=== PATIENT | male | born 1965 | race Two or more races ===

== ENCOUNTER 2025-02-08 09:04 | Inpatient (IN) | payer OTHER ==
[~2025-02-08] VITALS: Ht 172.7 cm; Wt 89.0 kg
--- NOTE | 2025-02-08 09:12 | ED.PDOC ---
HPI Comments 59-year-old male presents here with 2 weeks of intermittent chest discomfort. He states this is entire chest also radiates to bilateral shoulders. Positive nausea. He states his last about 2 minutes and goes away spontaneously. He states he can be doing anything and this occurs. No history of similar type of chest pain in the past. Denies any cough cold runny nose fever or chills. Patient is not a diabetic nonsmoker. Time Seen by MD: 09:12 Reviewed Notes: Nurses Notes, Medications, Allergies Allergies: Coded Allergies: NO KNOWN ALLERGIES (Unverified , 02/08/25) Information Source: Patient Mode of Arrival: Ambulatory Severity: Moderate Timing: Weeks Duration: Intermittent Prehospital treatment: None Location: Substernal Radiation: No Radiation Onset: At Rest Cardiac Risk Factors: None PE Risk Factors: None History of: None Modifying Factors: Nothing Associated Signs and Symptoms: None Past Medical History PAST MEDICAL HISTORY: Denies Surgical History: Denies all surgeries Family History Family History: Unknown Social History Smoker: Non-Smoker Alcohol: Denies ETOH Use Drugs: Denies Drug Use Lives In: Home Constitutional: denies: chills, diaphoresis, fatigue, fever, malaise, sweats, weakness, others EENTM: denies: blurred vision, double vision, ear bleeding, ear discharge, ear drainage, ear pain, ear ringing, eye pain, eye redness, hearing loss, mouth pain, mouth swelling, nasal discharge, nose bleeding, nose congestion, nose pain, photophobia, tearing, throat pain, throat swelling, voice changes, others Respiratory: denies: cough, hemoptysis, orthopnea, SOB at rest, shortness of breath, SOB with excertion, stridor, wheezing, others Cardiovascular: reports: chest pain; denies: dizzy spells, diaphoresis, Dyspnea on exertion, edema, irregular heart beat, left arm pain, lightheadedness, palpitations, PND, syncope, others Gastrointestinal: denies: abdomen distended, abdominal pain, blood streaked bowels, constipated, diarrhea, dysphagia, difficulty swallowing, hematemesis, melena, nausea, poor appetite, poor fluid intake, rectal bleeding, rectal pain, vomiting, others Genitourinary: denies: burning, dysuria, flank pain, frequency, hematuria, incontinence, penile discharge, penile sore, pain, testicle pain, testicle swelling, urgency, others Neurological: denies: dizziness, fainting, headache, left sided numbness, left sided weakness, numbness, paresthesia, pre-existing deficit, right sided numbne ss, right sided weakness, seizure, speech problems, tingling, tremors, weakness, others Musculoskeletal: denies: back pain, gout, joint pain, joint swelling, muscle pain, muscle stiffness, neck pain, others Integumetry: denies: bruises, change in color, change in hair/nails, dryness, laceration, lesions, lumps, rash, wounds, others Allergic/Immunocompromised: denies: Difficulty Healing, Frequent Infections, Hives, Itching, others Hematologic/Lymphatic: denies: anemia, blood clots, easy bleeding, easy bruising, swollen glands, others Endocrine: denies: excessive hunger, excessive sweating, excessive thirst, excessive urination, flushing, intolerance to cold, intolerance to heat, unexplained weight gain, unexplained weight loss, others Psychiatric: denies: anxiety, bipolar disorder, depression, hopeless, panic disorder, schizophrenia, sleepless, suicidal, others All Other Systems: Reviewed and Negative Physical Exam General Appearance: No Apparent Distress, Normal HEENT: Normal ENT Inspection, Pharynx Normal Neck: Full Range of Motion, Non-Tender, Normal, Normal Inspection Respiratory: Chest Non-Tender, Lungs Clear, No Accessory Muscle Use, No Respiratory Distress, Normal Breath Sounds Cardiovascular: No Edema, No Murmur, No Gallop, Normal Peripheral Pulses, Regular Rate/Rhythm Breast Exam: Deferred Gastrointestinal: No Organomegaly, Non Tender, No Pulsatile Mass, Normal Bowel Sounds, Soft Genitalia: Deferred Pelvic: Deferred Rectal: Deferred Extremities: No calf tenderness, Normal capillary refill, Normal inspection, Normal range of motion, Non-tender, No pedal edema Musculoskeletal : Apperance: Normal Neurologic: Alert, motorboat operator II-XII nml as Tested, No Motor Deficits, Normal Affect, Normal Mood, No Sensory Deficits Cerebellar Function: Normal Reflexes: Normal Skin: Dry, Normal Color, Warm Lymphatic: No Adenopathy EKG EKG #1: Comments Sinus rhythm rate of 66, prolonged QTC of 513. Inverted T-waves in 1 aVL V4, V5 with T-wave flattening in V6. EKG #2: Comments 10:22 a.m.. Normal sinus rhythm 57, inverted T-waves in 1 to aVL V4 V5 Was a procedure done? Was a procedure done?: No CP Differential Dx Differential Diagnosis: Other Differential Diagnosis: HTN Essential, HTN Accelerated Differential Diagnosis: Angina, Aortic dissection, Chest Wall Pain, Costochondritis, Esophageal reflux/spasm, Myocardial Infarction, Pericarditis, Pneumonia, Pneumothorax, Pulmonary Embolus X-Ray, Labs, Meds, VS Vital Signs Date Time Temp Pulse Resp B/P (MAP) Pulse Ox O2 Delivery O2 Flow Rate FiO2 02/08/25 10:22 57 02/08/25 10:00 98.2 60 16 212/113 (146) 97 98.2 02/08/25 10:00 60 02/08/25 09:09 66 02/08/25 09:04 98.7 64 16 189/88 (121) 96 98.7 Lab Test 02/08/25 12:35 02/08/25 10:20 02/08/25 09:21 Range/Units Troponin I High Sensitivity 69 *H 74 *H 75 *H </=54 ng/L White Blood Count 5.6 4.4-10.8 10^3/uL Red Blood Count 5.16 4.5-5.90 10^6/uL Hemoglobin 15.6 13.5-17.5 g/dL Hematocrit 45.8 41.0-53.0 % Mean Corpuscular Volume 88.8 80.0-100.0 fL Mean Corpuscular Hemoglobin 30.2 28.0-32.0 pg Mean Corpuscular Hemoglobin Concent 34.0 32.0-36.0 g/dL Red Cell Distribution Width 14.7 H 11.8-14.3 % Platelet Count 297 140-450 10^3/uL Mean Platelet Volume 7.6 6.9-10.8 fL Neutrophils (%) (Auto) 47.6 37.0-80.0 % Lymphocytes (%) (Auto) 42.5 10.0-50.0 % Monocytes (%) (Auto) 8.2 0.0-12.0 % Eosinophils (%) (Auto) 1.3 0.0-7.0 % Basophils (%) (Auto) 0.4 0.0-2.0 % Neutrophils # (Auto) 2.7 1.6-8.6 10 ^3/uL Lymphocytes # (Auto) 2.4 0.4-5.4 10 ^3/uL Monocytes # (Auto) 0.5 0-1.3 10 ^3/uL Eosinophils # (Auto) 0.1 0-0.8 10 ^3/uL Basophils # (Auto) 0 0-0.2 10 ^3/uL Nucleated Red Blood Cells 0.2 % Sodium Level 140 136-145 mmol/L Potassium Level 4.1 3.5-5.1 mmol/L Chloride Level 106 98-107 mmol/L Carbon Dioxide Level 26 20-31 mmol/L Anion Gap 8 5-15 Blood Urea Nitrogen 22 9-23 mg/dL Creatinine 1.91 H 0.700-1.30 mg/dL Glomerular Filtration Rate Calc 40 >90 mL/min BUN/Creatinine Ratio 11.5 10.0-20.0 Serum Glucose 102 74-106 mg/dL Hemoglobin A1c Pending Calcium Level 9.8 8.7-10.4 mg/dL Magnesium Level Pending Aspartate Amino Transferase (AST) Pending Alanine Aminotransferase (ALT) Pending B-Type Natriuretic Peptide Pending Triglycerides Level Pending Cholesterol Level Pending LDL Cholesterol Pending HDL Cholesterol Pending Thyroid Stimulating Hormone (TSH) Pending [place] [id number] Ph: [phone] DIAGNOSTIC IMAGING Diagnostic Imaging Report : [id number] Signed PATIENT: GHULAM MCKEON ACCT: [id number] UNIT: [id number] : 1965 LOC: ER ROOM / BED: / AGE / SEX: 59 / M ADM STATUS: REG ER SERVICE [id number] ORDERING PHYSICIAN: YOBANY GAMBLE MD PROCEDURE(s): CXR2 - CHEST TWO VIEWS ROUTINE REASON: Chest pain ORDER NUMBER(s): [id number], ACCESSION NUMBER(s): [id number] XY CHEST TWO VIEWS ROUTINE, HISTORY: Chest pain COMPARISON: None None TECHNICAL DATA: 2 view of the chest was obtained. FINDINGS: Lines and tubes: None Cardiomediastinal silhouette: normal Pulmonary vasculature: normal Lung expansion: normal Lung airspace: normal Lung interstitium: normal Pleura: normal Pneumothorax: no Bones: Unremarkable Other: no IMPRESSION: No acute intrathoracic abnormality. ATED BY: ANDRES YUSUF MD DICTATED DATE/TIME: 02/08/25 1033 SIGNED BY: ANDRES YUSUF MD SIGNED DATE/TIME: 02/08/25 1033 CC: 59-year-old male presents here with chest discomfort. EKG done multiple times demonstrates multiple repolarization abnormalities including inverted T- waves in multiple leads. Blood work demonstrates elevated troponins. At this time I am concerned about acute coronary syndrome. Patient has been given aspirin in the ER. Patient agreed to admission. Hospitalist has been contacted. CBC and BMP otherwise unremarkable. Time of 1ST Reevaluation: 10:42 Reevaluation 1ST: Unchanged Patient Education/Counseling: Diagnosis, Treatment Family Education/Counseling: No Family Present SEPSIS Sepsis Screen Physician Orders Electrocardigram (02/08/25 10:09) Electrocardigram (02/08/25 12:09) Chest Two Views Routine (02/08/25 09:35) B-Type Natriuretic Peptide (02/08/25 14:29) Blood Pressure (02/08/25 ) PTPTT (02/08/25 14:29) Echo 2d Mode Cardiac Dop (02/08/25 14:29) Lipid Panel (02/08/25 14:29) Hemoglobin A1c (02/08/25 14:29) Thyroid Stimulating Hormone (02/08/25 14:29) Alanine Aminotransferase (02/08/25 14:29) Aspartate Amino Transferase (02/08/25 14:29) Magnesium (02/08/25 14:29) Hydralazine Injection (Apresoline Inject (02/08/25 14:30) Communication Order (02/08/25 14:35) Urinalysis (02/08/25 14:36) Vital Signs Date Time Temp Pulse Resp B/P (MAP) Pulse Ox O2 Delivery O2 Flow Rate FiO2 02/08/25 10:22 57 02/08/25 10:00 98.2 60 16 212/113 (146) 97 98.2 02/08/25 10:00 60 02/08/25 09:09 66 02/08/25 09:04 98.7 64 16 189/88 (121) 96 98.7 Laboratory Tests Test 02/08/25 09:21 White Blood Count 5.6 10^3/uL (4.4-10.8) Departure 1 Departure Time of Disposition: 12:42 Impression: Primary Impression: NSTEMI (non-ST elevated myocardial infarction) Disposition: ADMITTED INPATIENT Condition: Serious Critical Care Note Critical Care Time?: Yes (35 min-critical care time only) Critical care comment: Concern for immediate deterioration given his EKG changes and elevated troponins. Time spent falling serial troponins and multiple re-evaluations of the patient Stability Stability form required: No Heart Score Heart Score: Heart Score Response (Comments) Value History Moderate Suspicious 1 EKG Repolarization Disturb 1 Age 45-64 1 Risk Factors 1 or 2 risk factors 1 Troponin 1-2 x's Normal limit 1 Total 5 I personally scribed for YOBANY GAMBLE MD ([email or web address]) on 02/08/25 at 09:12. Electronically submitted by Charlotte Ni ([email or web address]). I personally scribed for YOBANY GAMBLE MD ([email or web address]) on 02/08/25 at 10:24. Electronically submitted by Charlotte Ni ([email or web address]). I personally scribed for YOBANY GAMBLE MD ([email or web address]) on 02/08/25 at 10:42. Electronically submitted by Charlotte Ni ([email or web address]). I personally scribed for YOBANY GAMBLE MD ([email or web address]) on 02/08/25 at 10:58. Electronically submitted by Charlotte Ni ([email or web address]). YOBANY GAMBLE MD Feb 08, 2025 09:12
[2025-02-08 09:45] LABS: Hematocrit 45.8 % (41.0-53.0); Hemoglobin 15.6 g/dL (13.5-17.5); Mean Corpuscular Hemoglobin 30.2 pg (28.0-32.0); Mean Corpuscular Volume 88.8 fL (80.0-100.0); Nucleated Red Blood Cells % 0.2 %
--- NOTE | 2025-02-08 10:24 | ECG ---
[facility] Test Date: 2025-02-08 Test Time: 10:22:58 Pat Name: GHULAM MCKEON Department: ED Room: 0285T Gender: M Doctor Of Naturopathic Medicine: JESSICA : 1965 Requested By: YOBANY GAMBLE Order Number: [id number] Reading MD: Jose Lewis Measurements Intervals [place] Rate: 57 P: 63 W[place]: 171 QRS: -19 QRSD: 102 T: 221 QT: 465 QTc: 453 Interpretive Statements Sinus rhythm Borderline left axis deviation Abnormal T, consider ischemia, diffuse leads Electronically Signed On 02-09-2025 19:30:55 PDT by Jose Lewis Please click the below link to view image of tracing.
--- NOTE | 2025-02-08 10:35 | DVH ---
XY CHEST TWO VIEWS ROUTINE, HISTORY: Chest pain COMPARISON: None None TECHNICAL DATA: 2 view of the chest was obtained. FINDINGS: Lines and tubes: None Cardiomediastinal silhouette: normal Pulmonary vasculature: normal Lung expansion: normal Lung airspace: normal Lung interstitium: normal Pleura: normal Pneumothorax: no Bones: Unremarkable Other: no IMPRESSION: No acute intrathoracic abnormality.
[2025-02-08 10:53] LABS: Chloride 106 mmol/L (98-107); Potassium 4.1 mmol/L (3.5-5.1); Sodium 140 mmol/L (136-145)
[2025-02-08 10:54] LABS: Anion Gap 8 (5-15); Carbon Dioxide 26 mmol/L (20-31)
[2025-02-08 10:55] LABS: Calcium 9.8 mg/dL (8.7-10.4)
[2025-02-08 10:59] LABS: BUN/Creatinine Ratio 11.5 (10.0-20.0); Blood Urea Nitrogen 22 mg/dL (9-23); Glucose 102 mg/dL (74-106)
[2025-02-08 15:12] LABS: Alanine Aminotransferase 30.0 U/L (7-40); Cholesterol 150.0 mg/dL (< 200); Magnesium 2.0 mg/dL (1.6-2.6); Triglycerides 97.0 mg/dL (< 150)
[2025-02-08] MEDS ORDERED: HYDROcodone-ACET 5/325MG TAB PO PRN (15:15)
[2025-02-08] MEDS ORDERED: ACETAMINOPHEN 325 MG TAB PO PRN (15:15)
[2025-02-08] MEDS ORDERED: NITROGLYCERIN 0.4 MG SL TAB SL PRN (15:15)
[2025-02-08] MEDS ORDERED: MORPHINE SULFATE INJ 2 MG/ml SYRG IV PRN ×2 (15:15)
[2025-02-08] MEDS ORDERED: ONDANSETRON HCL 4 MG/2 ML VIAL IV PRN (15:15)
--- NOTE | 2025-02-08 15:20 | ECG ---
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
[2025-02-08 15:21] LABS: HDL Cholesterol 39.0 mg/dL (40-59)
[2025-02-08] MEDS: hydrALAZINE HCL 20 MG/ML VL IV ONE (15:25)
[2025-02-08 15:38] LABS: INR 0.97 (0.9-1.15); Partial Thromboplastin Time 27.6 SEC (24.5-34.5); Prothrombin Time 10.3 sec (9.3-11.8)
--- NOTE | 2025-02-08 15:38 | DVHHP2 ---
History of Present Illness Reason for Visit: Chest pain History of Present Illness 59-year-old male with no known past medical history presents to the emergency department with complaint of upper chest pain for the past 1.5 weeks. The pain is described as nonradiating, persistent, and associated with shortness of b reath. He denies palpitations, syncope, nausea, vomiting, diaphoresis, or lower extremity swelling. He reports no known prior history of CAD, [place], or hypertension. Denies familiar history of CAD or premature [place]. No history of tobacco use, alcohol consumption, or illicit drug use. In the emergency department, a 12 lead ECG shows sinus rhythm with abnormal T-wave changes. Serial troponins have been mildly elevated but trending down (75, 74, 69). Blood pressure has been persistently elevated: Initial BP 189/88 mmHg, repeat 212/113 mmhg, most recent 193/104 mmHg. Past Medical History Denies Past Surgical History Denies Family History Reviewed, non-contributory to the management of this case. Past Social History The patient lives at home, denies smoking, alcohol or illicit drugs abuse. Review of Systems Constitutional: Yes: Malaise; No: Fever, Chills, Sweats, Weakness, Other ENT: No: Ear pain, Ear discharge, Nose pain, Nose discharge, Nose congestion, Mouth pain, Mouth swelling, Throat pain, Throat swelling, Other Cardiovascular: Chest Pain; No: Palpitations, Orthopnea, Paroxysmal Noc. Dyspnea, Edema, Lt Headedness, Other Gastrointestinal: No: Nausea, Vomiting, Abdominal Pain, Diarrhea, Constipation, Melena, Hematochezia, Other Genitourinary: No Dysuria, No Frequency, No Incontinence, No Hematuria, No Retention, No Other Musculoskeletal: No: other, neck pain, shoulder pain, arm pain, back pain, hand pain, leg pain, foot pain Skin: No: Rash, Lesions, Jaundice, Bruising, Other Allergies: Coded Allergies: NO KNOWN ALLERGIES (Unverified , 02/08/25) Medications Current Medications Medications Dose Ordered Sig/Taiwo Route Start Time Stop Time Status Last Admin Dose Admin Hydralazine HCl 10 mg Q6HP PRN IV 02/08/25 14:30 Exam Vital Signs Vital Signs Date Time Temp Pulse Resp B/P (MAP) Pulse Ox O2 Delivery O2 Flow Rate FiO2 02/08/25 10:22 57 02/08/25 10:00 98.2 16 212/113 (423) 97 98.2 General Appearance: Alert, Oriented X3, Cooperative, mild distress HEENT: Atraumatic, PERRLA, EOMI, Mucous membr. moist/pink Respiratory: Clear to auscultation, Normal air movement Cardiovascular: Regular rate, Normal S1, Normal S2 Abdominal: Normal bowel sounds, Soft, No tenderness Extremities: No clubbing, No cyanosis, No edema, Normal pulses Skin: No rashes, No breakdown, No significant lesion Neuro: Normal gait, Normal speech, Strength at 5/5 X4 ext, Normal tone Psych/Mental Status: Mental status NL Labs/Xrays Labs Test 02/08/25 15:07 02/08/25 12:35 02/08/25 09:21 Range/Units Troponin I High Sensitivity 69 *H </=54 ng/L White Blood Count 5.6 4.4-10.8 10^3/uL Red Blood Count 5.16 4.5-5.90 10^6/uL Hemoglobin 15.6 13.5-17.5 g/dL Hematocrit 45.8 41.0-53.0 % Mean Corpuscular Volume 88.8 80.0-100.0 fL Mean Corpuscular Hemoglobin 30.2 28.0-32.0 pg Mean Corpuscular Hemoglobin Concent 34.0 32.0-36.0 g/dL Red Cell Distribution Width 14.7 H 11.8-14.3 % Platelet Count 297 140-450 10^3/uL Mean Platelet Volume 7.6 6.9-10.8 fL Neutrophils (%) (Auto) 47.6 37.0-80.0 % Lymphocytes (%) (Auto) 42.5 10.0-50.0 % Monocytes (%) (Auto) 8.2 0.0-12.0 % Eosinophils (%) (Auto) 1.3 0.0-7.0 % Basophils (%) (Auto) 0.4 0.0-2.0 % Neutrophils # (Auto) 2.7 1.6-8.6 10 ^3/uL Lymphocytes # (Auto) 2.4 0.4-5.4 10 ^3/uL Monocytes # (Auto) 0.5 0-1.3 10 ^3/uL Eosinophils # (Auto) 0.1 0-0.8 10 ^3/uL Basophils # (Auto) 0 0-0.2 10 ^3/uL Nucleated Red Blood Cells 0.2 % Sodium Level 140 136-145 mmol/L Potassium Level 4.1 3.5-5.1 mmol/L Chloride Level 106 98-107 mmol/L Carbon Dioxide Level 26 20-31 mmol/L Anion Gap 8 5-15 Blood Urea Nitrogen 22 9-23 mg/dL Creatinine 1.91 H 0.700-1.30 mg/dL Glomerular Filtration Rate Calc 40 >90 mL/min BUN/Creatinine Ratio 11.5 10.0-20.0 Serum Glucose 102 74-106 mg/dL Hemoglobin A1c 5.3 <5.7 % A1C Calcium Level 9.8 8.7-10.4 mg/dL Thyroid Stimulating Hormone (TSH) 0.52 L 0.55-4.78 uIU/mL PROCEDURE(s): CXR2 - CHEST TWO VIEWS ROUTINE REASON: Chest pain ORDER NUMBER(s): [id number], ACCESSION NUMBER(s): [id number] XY CHEST TWO VIEWS ROUTINE, HISTORY: Chest pain COMPARISON: None None TECHNICAL DATA: 2 view of the chest was obtained. FINDINGS: Lines and tubes: None Cardiomediastinal silhouette: normal Pulmonary vasculature: normal Lung expansion: normal Lung airspace: normal Lung interstitium: normal Pleura: normal Pneumothorax: no Bones: Unremarkable Other: no IMPRESSION: No acute intrathoracic abnormality. SEPSIS Sepsis Screen Date sepsis recognized/suspect: Feb 08, 2025 Time Sepsis recognized/suspect: 09:02 Recent Procedure: No On Antibiotic Therapy: No Respiratory Rate >20: No Heart Rate >90: No Temp<36 C (96.8 F) or >38.3 C: No SBP <90 or MAP <65 mmHG: No New Acute Mental Status Change: No Is the patient on CPAP, BIPAP,: No Physician Orders Electrocardigram (02/08/25 10:09) Electrocardigram (02/08/25 12:09) Chest Two Views Routine (02/08/25 09:35) B-Type Natriuretic Peptide (02/08/25 14:29) Blood Pressure (02/08/25 ) PTPTT (02/08/25 14:29) Echo 2d Mode Cardiac Dop (02/08/25 14:29) Lipid Panel (02/08/25 14:29) Alanine Aminotransferase (02/08/25 14:29) Aspartate Amino Transferase (02/08/25 14:29) Magnesium (02/08/25 14:29) Hydralazine Injection (Apresoline Inject (02/08/25 14:30) Communication Order (02/08/25 14:35) Urinalysis (02/08/25 14:36) Nifedipine Er (Procardia Xl (Time-Releas (02/08/25 15:15) Aspirin Tablet (02/09/25 10:00) Atorvastatin (Lipitor) (02/08/25 22:00) * Cardiology Consult (02/08/25 15:11) Admit (02/08/25 15:11) Code Status (02/08/25 15:11) Hydrocodone-Acet 5/325mg Tab ([place] 5/32 (02/08/25 15:15) Ondansetron Hcl (Zofran) (02/08/25 15:15) Enoxaparin Sodium (Lovenox) (02/09/25 10:00) Fall Risk Precautions In Place QSHIFT (02/08/25 15:11) Complete Blood Count (02/09/25 04:00) Comprehensive Metabolic Panel (02/09/25 04:00) Cardiac Diet-2gna,Lofat,Lochol (02/08/25 Dinner) Condition: Serious (02/08/25 15:11) Acetaminophen Tablet (Tylenol Tablet) (02/08/25 15:15) Morphine Sulfate Injection (02/08/25 15:15) Nitroglycerin Sublingual (Ntrostat Subli (02/08/25 15:15) Morphine Sulfate Injection (02/08/25 15:15) Stat Ekg For Chest Pain (02/08/25 15:11) Notify Md Of Changes From Base (02/08/25 15:11) [employer] Workflow Consultant For 24 Hours (02/08/25 15:11) Emergency Dysrhythmia Protocol (02/08/25 15:11) Rhythm Strips Once Every Shift (02/08/25 15:11) Oxygen By Nasal Cannula (02/08/25 15:11) Vital Signs Date Time Temp Pulse Resp B/P (MAP) Pulse Ox O2 Delivery O2 Flow Rate FiO2 02/08/25 10:22 57 02/08/25 10:00 98.2 60 16 212/113 (146) 97 98.2 02/08/25 10:00 60 02/08/25 09:09 66 02/08/25 09:04 98.7 64 16 189/88 (121) 96 98.7 Laboratory Tests Test 02/08/25 09:21 White Blood Count 5.6 10^3/uL (4.4-10.8) Assessment/Plan Assessment/Plan # hypertensive emergency * Admit to telemetry unit * Aggressive BP control * Started on nifedipine er 60mg qd, up titrate as tolerated. Hydralazine as needed * Check A!C, Lipid panel, TSH * Counseled on DASH diet # NSTEMI # Chest pain (heart score 5) * Chest pain protocol * Continue aspirin and statins * Repeat ECG * Echo * Cardiology consult # overweight * Lifestyle modification counseled DVT prophylaxis Medical plan discussed with patient and RN Plan discussed with: Patient My Orders Orders - WILLIAMS SANDERSON MANAGER TECHNICAL Procedure Category Date Status Time B-Type Natriuretic LAB 02/08/25 In Process Peptide 14:29 Blood Pressure ED NURSING 02/08/25 Transmitted PTPTT LAB 02/08/25 In Process 14:29 Echo 2d Mode Cardiac US 02/08/25 Logged DOP 14:29 Lipid Panel LAB 02/08/25 In Process 14:29 Alanine LAB 02/08/25 In Process Aminotransferase 14:29 Aspartate Amino LAB 02/08/25 In Process Transferase 14:29 Magnesium LAB 02/08/25 In Process 14:29 Hydralazine Injection PHA 02/08/25 In Process (Apresoline Inject 14:30 Communication Order ORDERS 02/08/25 Transmitted 14:35 Urinalysis LAB 02/08/25 Logged 14:36 Nifedipine Er PHA 02/08/25 Verified (Procardia Xl 15:15 Aspirin Tablet PHA 02/09/25 Verified 10:00 Atorvastatin (Lipitor) PHA 02/08/25 Verified 22:00 * Cardiology Consult CONS 02/08/25 Verified 15:11 Admit ADMIT 02/08/25 Verified 15:11 Code Status CODE 02/08/25 Verified 15:11 Hydrocodone-Acet PHA 02/08/25 Verified 5/325mg Tab ([place] 15:15 Ondansetron Hcl PHA 02/08/25 Verified (Zofran) 15:15 Enoxaparin Sodium PHA 02/09/25 Verified (Lovenox) 10:00 Fall Risk Precautions [facility] 02/08/[address] 15:11 Complete Blood Count LAB 02/09/25 Verified 04:00 Comprehensive LAB 02/09/25 Verified Metabolic Panel 04:00 Cardiac DIET 02/08/25 Verified Diet-2gna,Lofat,Lochol Dinner Condition: Serious [facility] 02/08/25 Verified 15:11 Acetaminophen Tablet PHA 02/08/25 Verified (Tylenol Tablet) 15:15 Morphine Sulfate [facility] 02/08/25 Verified Injection 15:15 Nitroglycerin [facility] 02/08/25 Verified Sublingual (Ntrostat 15:15 Morphine Sulfate PHA 02/08/25 Verified Injection 15:15 Stat Ekg For Chest [facility] 02/08/25 Verified Pain 15:11 Notify Md Of Changes [facility] 02/08/25 Verified From Base 15:11 [employer] Workflow Consultant For [facility] 02/08/25 Verified 24 Hours 15:11 Emergency Dysrhythmia [facility] 02/08/25 Verified Protocol 15:11 Rhythm Strips Once [facility] 02/08/25 Verified Every Shift 15:11 Oxygen By Nasal RT 02/08/25 Verified Cannula 15:11 Date of Service: Feb 08, 2025 Billing Provider: WILLIAMS SANDERSON Common Visit Codes: [id number] INP/OBS CARE (HIGH) Consultation Codes: [id number] CONSULT <60MIN WILLIAMS SANDERSON Feb 08, 2025 15:38
[2025-02-08 18:37] VITALS: BP 151/82; PULSE 69; RESP 16; TEMP 98.3; O2SAT 96
[2025-02-08 18:38] LABS: Urine Protein, UAD Negative (Negative)
[2025-02-08 19:59] VITALS: PULSE 77; RESP 12; O2SAT 95
[2025-02-08] MEDS: ATORVASTATIN 20 MG TAB PO SCH (21:28)
[2025-02-08 22:53] VITALS: BP 168/101; PULSE 65; RESP 16; TEMP 97.8; O2SAT 95
[2025-02-08 23:02] VITALS: PULSE 76; RESP 16
[2025-02-08] MEDS: hydrALAZINE HCL 20 MG/ML VL IV PRN (23:48)
[2025-02-09] VITALS (8 sets, daily range): BP systolic 130–151; BP diastolic 58–91; PULSE 68–81; RESP 16–22; TEMP 97.6–98.6; O2SAT 95–98
[2025-02-09 08:37] LABS: Hematocrit 48.9 % (41.0-53.0); Hemoglobin 16.5 g/dL (13.5-17.5); Mean Corpuscular Hemoglobin 30.0 pg (28.0-32.0); Mean Corpuscular Volume 88.9 fL (80.0-100.0); Nucleated Red Blood Cells % 0.2 %
[2025-02-09 08:55] LABS: Alanine Aminotransferase 29 U/L (7-40); Albumin 4.7 g/dL (3.2-4.8); Alkaline Phosphatase 68 U/L (46-116); Anion Gap 11 (5-15); BUN/Creatinine Ratio 11.9 (10.0-20.0); Blood Urea Nitrogen 19 mg/dL (9-23); Calcium 10.0 mg/dL (8.7-10.4); Carbon Dioxide 23 mmol/L (20-31); Chloride 105 mmol/L (98-107); Glucose 101 mg/dL (74-106); Potassium 4.1 mmol/L (3.5-5.1); Sodium 139 mmol/L (136-145); Total Protein 7.5 g/dL (5.7-8.2)
[2025-02-09 08:56] LABS: Bilirubin, Total 0.6 mg/dL (0.2-1.0)
[2025-02-09] MEDS: ENOXAPARIN SOD 40 MG/0.4 ML SYRINGE SC SCH (09:23)
[2025-02-09 11:07] LABS: Free T4 (Free Thyroxine) 0.94 ng/dL (0.89-1.76)
--- NOTE | 2025-02-09 14:10 | DVHPNRES ---
Progress Note Date Seen: Feb 09, 2025 Resident Creating Document: TRAVIS TESFAYE RESIDENT Medical Necessity Reason Pt with a Central, PICC or Fol: No Subjective Review of Systems 59-year-old male with no known past medical history presents to the emergency department with complaints of upper chest pain for the past 1.5 weeks. The patient reports The pain comes once or twice during the day but yesterday when he was lifting heavy boxes the pain was quite intense he rates it as 10/ 10 in intensity, lasts 1-1/2 minute, is associated with nausea, sweating, shortness of breath, dizziness but no vomiting. He denies palpitations, syncope, 1 no lower extremity swelling. He reports no known prior history of any disease and has never been to a PCP as he felt healthy always. PMH: Denies PSH: None Family history: Reviewed, noncontributory to the management of this case Past social history: Patient lives at home, denies ever smoking, taking alcohol, or using any illicit drugs. She: None Home medications: ROS: Patient reports feeling better today and that he has had no episodes of chest pain since he came yesterday to the emergency room. Objective vital signs Vital Sign Date Time Temp Pulse Resp B/P (MAP) Pulse Ox O2 Delivery O2 Flow Rate FiO2 02/09/25 09:23 145/91 02/09/25 09:00 98.5 81 18 96 98.5 02/09/25 08:00 Room Air* 0 21 Total Intake and Output 02/08/25 02/08/25 02/09/25 15:00 23:00 07:00 Intake Total 500 ml Balance 500 ml medications Current Medications Medications Dose Ordered Sig/Taiwo Route Start Time Stop Time Status Last Admin Dose Admin Hydralazine HCl 10 mg Q6HP PRN IV 02/08/25 14:30 02/08/25 23:48 10 MG Nifedipine 60 mg DAILY PO 02/08/25 15:15 02/09/25 09:23 60 MG Aspirin 81 mg DAILY PO 02/09/25 10:00 02/09/25 09:24 81 MG Atorvastatin Calcium 40 mg HS PO 02/08/25 22:00 Acetaminophen/ Hydrocodone Bitart 1 tab Q4HP PRN PO 02/08/25 15:15 Ondansetron HCl 4 mg Q4HP PRN IV 02/08/25 15:15 Enoxaparin Sodium 40 mg DAILY SC 02/09/25 10:00 02/09/25 09:23 40 MG Acetaminophen 650 mg Q6HP PRN PO 02/08/25 15:15 Morphine Sulfate 2 mg Q4HPRN PRN IV 02/08/25 15:15 Nitroglycerin 0.4 mg Q5MINP PRN SL 02/08/25 15:15 Morphine Sulfate 2 mg Q30M PRN IV 02/08/25 15:15 Examination Pt is lying on bed General Appearance: Alert, Oriented X3, Cooperative, Not in acute distress HEENT: Atraumatic, Mucous membranes moist/pink Respiratory: Clear to auscultation, Normal air movement, No added sounds Cardiovascular: Regular rate, Normal S1, Normal S2, No murmurs Abdominal: Active bowel sounds, Soft, no distention, no tenderness Extremities: No edema, Normal pulses, No tenderness/swelling Skin: No Significant rash, no Breakage in the skin Neuro: Normal speech, sensorimotor deficits none Psych/Mental Status: Mental status NL, Mood NL Nurse was there as economic development coordinator during examination laboratory and microbiology Laboratory Tests 02/09/25 07:29 Test 02/09/25 07:29 Range/Units Serum Glucose 101 74-106 mg/dL Labs and/or images reviewed: Labs reviewed by me, Image(s) reviewed by me Problem List/Assessment/Plan Problem List/Assessment/Plan # Chest pain rule out ACS # Hypertensive emergency with a questionable end-organ damage-resolving # PIETRO likely VMN from above # NSTEMI, type 2 likely due to hypertensive emergency # Newly diagnosed HTN -Chest pain protocol -continue aspirin and statins -ECG showed sinus rhythm and no significant ST changes -Aggressive BP control and monitoring -Started on nifedipine ER 60 mg q.i. d., hydralazine as needed -Counseled on diet, need of exercise -monitor lab for now and IVF if needed -Troponin levels high with down trending 70-74- 69 - hypertension under control now -Echo pending -CXR showed no acute changes #Overweight -Lifestyle modification counseled GI prophylaxis: Protonix DVT prophylaxis: Lovenox Diet: low-salt diet Goals of care discussed with the patient for more than 27 minutes: Full code status Case discussed with Dr. Kinsey patient and nurse. Plan discussed with: Patient, Other (rn) Date of Service: Feb 09, 2025 Billing Provider: BIANCA KINSEY MD Common Visit Codes: 61463-[id number] INP/OBS CARE(HIGH) TRAVIS TESFAYE RESIDENT Feb 09, 2025 14:10 TORSTEN BAUMAN RESIDENT Feb 09, 2025 14:47 BIANCA KINSEY MD Feb 09, 2025 20:49
--- NOTE | 2025-02-09 16:14 | ECG ---
[facility] Test Date: 2025-02-08 Test Time: 09:09:03 Pat Name: GHULAM MCKEON Department: ER Room: [facility]5T B Gender: M [place] Expert: BRADY : 1965 Requested By: YOBANY GAMBLE Order Number: [id number] Reading MD: Jose Lewis Measurements Intervals [place] Rate: 66 P: 63 KS: 174 QRS: 10 QRSD: 99 T: 172 QT: 489 QTc: 513 Interpretive Statements Sinus rhythm Atrial premature complex Repol abnrm suggests ischemia, anterolateral Prolonged QT interval Baseline wander in lead(s) II,III,aVF Electronically Signed On 02-09-2025 19:30:39 PDT by Jose Lewis Please click the below link to view image of tracing.
--- NOTE | 2025-02-09 19:42 | DVHSR ---
APPROVED REPORT EXAM: Two-dimensional and M-mode echocardiogram with Doppler and color Doppler. Blood Pressure: 135/79 mmHg INDICATION NSTEMI RISK FACTORS Height: 5'8", Weight: 192 DIMENSIONS LVDd4.1 (3.8-5.7cm)LA (2D)3.9 (1.9-4.0cm)Aortic Root3.1 (2.0-3.7cm) LVDs2.1 (2.5-4.0cm)LA (MM) (1.9-4.0cm)Aortic Cusp Exc1.4 (1.5-2.0cm) EF (%) 80.0 (55-70%)Rt. Atrium3.3 (1.9-4.0cm)Asc. Aorta3.4 cm IVSd1.2 (0.7-1.1cm)RV (D)3.5 (1.8-2.4cm) PWd1.4 (0.7-1.1cm) Mitral Valve MitralMitral Stenosis E wave0.61m/sMV Mean GR.mmHg A wave0.89m/sMV Peak GR.mmHg E/A ratio0.72D MVAcm2 DECEL [id number] 1/2 Timems Aortic Valve Aortic ValveAortic Stenosis V11.28m/Cristi Mean GR.6mmHg V21.48m/Cristi Peak GR.9mmHg LVOT Diameter2.0 (1.8-2.4cm)Doppler AVA2.72cm2 AI P 1/2 Xpjp294.42ms Pulmonic Valve V21.07m/s Conclusion NORMAL LV EF AND IS 65% MODERATE DEGREE LVH AND MODERATE DEGREE LV DIASTOLIC DYSFUNCTION GROSSLY NORMAL VALVES MODERATE DEGREE AORTIC REGURGITATION NORMAL RV FUNCTION NO EFFUSION
[2025-02-10 01:00] VITALS: BP 135/72; PULSE 83; RESP 18; TEMP 98; O2SAT 97
[2025-02-10 05:00] VITALS: BP 129/83; PULSE 87; RESP 20; TEMP 98.1; O2SAT 96
[2025-02-10 08:00] VITALS: PULSE 76; PULSE 77; RESP 16; O2SAT 96
[2025-02-10 09:00] VITALS: BP 148/73; PULSE 73; RESP 14; TEMP 98.5; O2SAT 95
[2025-02-10 09:13] LABS: Alanine Aminotransferase 25 U/L (7-40); Albumin 4.5 g/dL (3.2-4.8); Alkaline Phosphatase 67 U/L (46-116); Anion Gap 8 (5-15); BUN/Creatinine Ratio 10.9 (10.0-20.0); Bilirubin, Total 0.5 mg/dL (0.2-1.0); Blood Urea Nitrogen 17 mg/dL (9-23); Calcium 9.7 mg/dL (8.7-10.4); Carbon Dioxide 26 mmol/L (20-31); Chloride 104 mmol/L (98-107); Potassium 3.8 mmol/L (3.5-5.1); Sodium 138 mmol/L (136-145); Total Protein 7.2 g/dL (5.7-8.2)
[2025-02-10 09:16] LABS: Glucose 153 mg/dL (74-106)
[2025-02-10] MEDS ORDERED: ASPI-325 PO (09:28)
[2025-02-10] MEDS ORDERED: NIFE1TAB31 PO (09:28)
[2025-02-10] MEDS ORDERED: ATOR20TA50 PO (09:28)
[2025-02-10] MEDS: PANTOPRAZOLE 40 MG/10 ML VIAL INJ IV SCH (09:47)
[2025-02-10 10:51] VITALS: BP 148/73
--- NOTE | 2025-02-10 13:42 | DVHDSRES ---
Discharge Summary Date of Admission Resident Creating Document: TRAVIS TESFAYE RESIDENT Feb 08, 2025 at 15:11 Date of Discharge: Feb 10, 2025 Admitting Diagnosis Chest pain likely from hypertensive emergency Labs/Diagnostic Data: Laboratory Results Test 02/10/25 08:45 02/09/25 07:29 02/08/25 18:27 02/08/25 15:07 Sodium Level 138 mmol/L (136-145) Potassium Level 3.8 mmol/L (3.5-5.1) Chloride Level 104 mmol/L (98-107) Carbon Dioxide Level 26 mmol/L (20-31) Anion Gap 8 (5-15) Blood Urea Nitrogen 17 mg/dL (9-23) Creatinine 1.56 mg/dL (0.700-1.30) Glomerular Filtration Rate Calc 51 mL/min (>90) BUN/Creatinine Ratio 10.9 (10.0-20.0) Serum Glucose 153 mg/dL (74-106) Calcium Level 9.7 mg/dL (8.7-10.4) Total Bilirubin 0.5 mg/dL (0.2-1.0) Aspartate Amino Transferase (AST) 20 U/L (13-40) Alanine Aminotransferase (ALT) 25 U/L (7-40) Alkaline Phosphatase 67 U/L (46-116) Total Protein 7.2 g/dL (5.7-8.2) Albumin 4.5 g/dL (3.2-4.8) White Blood Count 7.0 10^3/uL (4.4-10.8) Red Blood Count 5.50 10^6/uL (4.5-5.90) Hemoglobin 16.5 g/dL (13.5-17.5) Hematocrit 48.9 % (41.0-53.0) Mean Corpuscular Volume 88.9 fL (80.0-100.0) Mean Corpuscular Hemoglobin 30.0 pg (28.0-32.0) Mean Corpuscular Hemoglobin Concent 33.8 g/dL (32.0-36.0) Red Cell Distribution Width 14.6 % (11.8-14.3) Platelet Count 297 10^3/uL (140-450) Mean Platelet Volume 7.9 fL (6.9-10.8) Neutrophils (%) (Auto) 58.5 % (37.0-80.0) Lymphocytes (%) (Auto) 33.8 % (10.0-50.0) Monocytes (%) (Auto) 6.4 % (0.0-12.0) Eosinophils (%) (Auto) 0.8 % (0.0-7.0) Basophils (%) (Auto) 0.5 % (0.0-2.0) Neutrophils # (Auto) 4.1 10 ^3/uL (1.6-8.6) Lymphocytes # (Auto) 2.4 10 ^3/uL (0.4-5.4) Monocytes # (Auto) 0.4 10 ^3/uL (0-1.3) Eosinophils # (Auto) 0.1 10 ^3/uL (0-0.8) Basophils # (Auto) 0 10 ^3/uL (0-0.2) Nucleated Red Blood Cells 0.2 % Free Thyroxine (T4) Calculated 0.94 ng/dL (0.89-1.76) Total Triiodothyronine (TT3) 1.21 ng/mL (0.60-1.81) Urine Color Light-yellow (Yellow) Urine Clarity Clear (Clear) Urine pH 6.0 (5.0-9.0) Urine Specific [place] 1.017 (1.001-1.035) Urine Protein Negative (Negative) Urine Ketones Negative (Negative) Urine Blood 1+ /uL (Negative) Urine Nitrite Negative (Negative) Urine Bilirubin Negative (Negative) Urine Urobilinogen Normal mg/dL (Negative) Urine Leukocyte Esterase 1+ /uL (Negative) Urine RBC 9 /hpf (0 - 3) Urine Microscopic WBC 5 /HPF (0-3) Urine Squamous Epithelial Cells Few /hpf (<5) Urine Bacteria None seen /hpf (None Seen) Urine Mucus Few (None Seen) Urine Glucose Normal mg/dL (Normal) Prothrombin Time 10.3 sec (9.3-11.8) Prothrombin Time INR 0.97 (0.9-1.15) Activated Partial Thromboplast Time 27.6 SEC (24.5-34.5) Test 02/08/25 12:35 02/08/25 09:21 Troponin I High Sensitivity 69 ng/L (</=54) Hemoglobin A1c 5.3 % A1C (<5.7) Magnesium Level 2.0 mg/dL (1.6-2.6) B-Type Natriuretic Peptide 32.74 pg/mL (0-100) Triglycerides Level 97 mg/dL (< 150) Cholesterol Level 150 mg/dL (< 200) LDL Cholesterol 75 mg/dL (< 100) HDL Cholesterol 39 mg/dL (40-59) Thyroid Stimulating Hormone (TSH) 0.52 uIU/mL (0.55-4.78) Other Laboratory Tests 02/10/25 08:45 02/09/25 07:29 Brief Hx & Hospital Course: 59-year-old male with no known past medical history presents to the emergency department with complaints of upper chest pain for the past 1.5 weeks. The patient reports The pain comes once or twice during the day but yesterday when he was lifting heavy boxes the pain was quite intense he rates it as 10/ 10 in intensity, lasts 1-1/2 minute, is associated with nausea, sweating, shortness of breath, dizziness but no vomiting. He denies palpitations, syncope, 1 no lower extremity swelling. He reports no known prior history of any disease and has never been to a PCP as he felt healthy always. PMH: Denies PSH: None Family history: Reviewed, noncontributory to the management of this case Past social history: Patient lives at home, denies ever smoking, taking alcohol, or using any illicit drugs. She: None Home medications: none With history of hospitalization: The patient came in with chest pain. He was diagnosed of hypertensive emergency with a questionable end-organ damage that has been resolving. we ruled out ACS. Patient had PIETRO likely VMN from hypertensive emergency; NSTEMI, type 2 likely due to hypertensive emergency as well. This patient is a newly diagnosed case of hypertension. Troponin levels were high but downtrending from 70 to 74 and then 69. Chest pain protocol was begun and aspirin and statins were given. His ECG showed sinus rhythm and no significant ST changes. Aggressive BP monitoring and control was done and patient was started on nifedipine to 60 mg q.i.d., hydralazine as needed. Hypertension was controlled. Echo showed normal LV EF- 65%, moderate degree LVH and moderate degree LV diastolic dysfunction, grossly normal valves, moderate degree aortic regurgitation, normal right ventricular function and no effusion. Chest x-ray showed no acute changes as well. Patient was counseled regarding his high blood pressure, the injury to his kidneys, and counseled on continuing a low-sodium diet and the need of exercise for his high blood pressure and overweight. Patient communicated understanding. He is now stable for discharge and has been follow up with his PCP, Cardiology outpatient follow up and visit the Discharge clinic in 1 week. Patient is being discharged on aspirin, atorvastatin, nifedipine. Pt is lying on bed General Appearance: Alert, Oriented X3, Cooperative, Not in acute distress HEENT: Atraumatic, Mucous membranes moist/pink Respiratory: Clear to auscultation, Normal air movement, No added sounds Cardiovascular: Regular rate, Normal S1, Normal S2, No murmurs Abdominal: Active bowel sounds, Soft, no distention, no tenderness Extremities: No edema, Normal pulses, No tenderness/swelling Skin: No Significant rash, no Breakage in the skin Neuro: Normal speech, sensorimotor deficits none Psych/Mental Status: Mental status NL, Mood NL Nurse was there as checker during examination Operations or Procedures XRAY CHEST TWO VIEWS ROUTINE, IMPRESSION: No acute intrathoracic abnormality. 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 # NSTEMI, type 2 likely due to hypertensive emergency # Newly diagnosed HTN # Overweight Discharge Disposition: Home Discharge Instruct/Medications Diet: Consistent carbohydrate, Cardiac 2g Na,low cholest Activity: No Restrictions, As Tolerated Follow Up/Referral: followup with PCP in 1 week followup to Discharge clinic in a week cardio consult outpatient Medications: Nifidipine 60mg PO OD daily aspirin 81mg PO OD daily lipitor 40mg HS daily Scheduled Aspirin (Aspirin Low Dose), 81 MG PO DAILY Atorvastatin Calcium (Atorvastatin Calcium), 40 MG PO HS Nifedipine (Nifedipine Er), 60 MG PO DAILY Discharge Statement: "Patient was advised to return to the ER or call 911 if any headaches, dizziness, shortness of breath, chest pain, abdominal pain, bleeding, fevers, or worsening of medical condition. Patient was counseled about treatment plan, medications, possible side effects, patientverbalized understanding. All questions were answered to the best of my ability. This discharge took greater then 30 minutes in planning, reviewing documentation, counseling the patient, and discussing with other team members." ASSESSMENT ASSESSMENT Assessment # Chest pain ruled out ACS # Hypertensive emergency with a questionable end-organ damage-resolving # PIETRO likely VMN from above # NSTEMI, type 2 likely due to hypertensive emergency # Newly diagnosed HTN # Overweight (BMI-29.8) TRAVIS TESFAYE RESIDENT Feb 10, 2025 13:42 TORSTEN BAUMAN RESIDENT Feb 10, 2025 15:00
== END 2025-02-10 13:30 | disposition home or self-care (01) | DRG 199 ==
LOC: ER 09:04 → OVERFLOW 15:11 → TELE-WESTW 22:53
PROVIDERS: ADMIT Internal Medicine; ATTEND Internal Medicine
DX: I16.1 Hypertensive emergency (principal); N17.0 Acute kidney failure with tubular necrosis; I21.A1 Myocardial infarction type 2; E66.3 Overweight; N18.2 Chronic kidney disease, stage 2 (mild); I12.9 Hypertensive chronic kidney disease with stage 1 through stage 4 chronic kidney disease, or unspecified chronic kidney disease; Z68.29 Body mass index [BMI] 29.0-29.9, adult; Z79.899 Other long term (current) drug therapy; I10 Essential (primary) hypertension
CPT/HCPCS: 36415; 71046; 80048; 80053; 80061; 81001; 83036; 83735; 83880; 84439; 84443; 84450; 84460; 84480; 84484; 85025; 85610; 85730; 93005; 93306; 99291; G0378; J2470